=== PATIENT | male | born 1970 | race Caucasian/White ===

== ENCOUNTER 2017-02-07 04:47 | Emergency (ER) | payer SELFPAY ==
[2017-02-07 06:45] LABS: Bilirubin,Urine Negative (Negative); Ketones,Urine Trace mg/dL (Negative)
[2017-02-07 06:46] LABS: Blood,Urine Small (Negative); Leukocyte Esterase,Urine Negative (Negative); Nitrite,Urine Negative (Negative); Urobilinogen,Urine 0.2 mg/dL (<2.0)
[2017-02-07] MEDS ORDERED: MORPHINE IM ONE (08:39)
[2017-02-07] MEDS ORDERED: ZOFRAN ODT PO ONE (08:39)
[2017-02-07] MEDS ORDERED: NACL 0.9% 1000 ML 1,000 ML IV ONE ×2 (09:27→11:04)
--- NOTE | 2017-02-07 09:29 | Emergency Department Report ---
ED Back Pain/Injury HPI - General Chief Complaint: Back Pain/Injury Stated Complaint: BACK PAIN Time Seen by Provider: 02/07/17 08:38 Source: patient Limitations: Other - History of Present Illness Initial Comments: 46 yo male with PMHX of ETOH use and chronic back pain, presenting to ED complaining of worsening pain. Patient states he normally takes Flexeril for his back pain however over the last 2 days Flexeril has not been helping to improve his pain. Pain is located in the lower back. Pain does not radiate. Pain is worse with movement, improves with rest. Pertinent neck is cold saddle anesthesia, neurological deficits, urinary/bowel incontinence. Patient states although he has chronic back pain his pain sometimes does flareup and the only thing that helps is morphine. Patient also admits to drinking "one drink yesterday he denies history of ETOH abuse MD Complaint: back pain -: Gradual Similar Symptoms Previously: Yes Place: home Radiation: none Severity scale (0 -10): 5 Quality: burning Consistency: intermittent Improves With: none Worsens With: movement, sitting upright Context: turning/twisting Associated Symptoms: denies other symptoms. denies: confusion, weakness, chest pain, numbness, difficulty walking, fever/chills, constipation, headaches - Related Data Home Medications Medication Instructions Recorded Confirmed Last Taken Lisinopril/Hydrochlorothiazide 1 tab PO QDAY 02/07/17 02/07/17 Unknown [Zestoretic 10-12.5 mg] Allergies Allergy/AdvReac Type Severity Reaction Status Date / Time Penicillins Allergy Unknown Verified 02/07/17 05:13 ED Review of Systems ROS: Stated complaint: BACK PAIN Other details as noted in HPI Constitutional: denies: chills, fever Eyes: denies: eye pain, eye discharge, vision change ENT: denies: ear pain, throat pain Respiratory: denies: cough, shortness of breath, wheezing Cardiovascular: denies: chest pain, palpitations Endocrine: no symptoms reported Gastrointestinal: denies: abdominal pain, nausea, diarrhea Genitourinary: denies: urgency, dysuria Musculoskeletal: back pain. denies: joint swelling, arthralgia, myalgia Skin: denies: rash, lesions Neurological: denies: headache, weakness, paresthesias Psychiatric: denies: anxiety, depression Hematological/Lymphatic: denies: easy bleeding, easy bruising ED Past Medical Hx - Past Medical History Additional medical history: UNABLE TO OBTAIN - Surgical History Additional Surgical History: UNABLE TO OBTAIN - Social History Smoking Status: Current Every Day Smoker Substance Use Type: Alcohol - Medications Home Medications: Home Medications Medication Instructions Recorded Confirmed Last Taken Type Lisinopril/Hydrochlorothiazide 1 tab PO QDAY 02/07/17 02/07/17 Unknown History [Zestoretic 10-12.5 mg] ED Physical Exam - General Limitations: Other General appearance: alert, in no apparent distress - Head Head exam: Present: atraumatic, normocephalic - Eye Eye exam: Present: normal appearance - ENT ENT exam: Present: mucous membranes moist - Neck Neck exam: Present: normal inspection - Respiratory Respiratory exam: Present: normal lung sounds bilaterally. Absent: respiratory distress - Cardiovascular Cardiovascular Exam: Present: regular rate, normal rhythm. Absent: systolic murmur, diastolic murmur, rubs, gallop - GI/Abdominal GI/Abdominal exam: Present: soft, normal bowel sounds - Rectal Rectal exam: Present: deferred - Extremities Exam Extremities exam: Present: normal inspection - Back Exam Back exam: Present: normal inspection, full ROM, muscle spasm (paraspinal spasm ). Absent: tenderness, CVA tenderness (R), CVA tenderness (L), paraspinal tenderness, vertebral tenderness - Neurological Exam Neurological exam: Present: alert, oriented X3 - Psychiatric Psychiatric exam: Present: normal affect, normal mood - Skin Skin exam: Present: warm, dry, intact, normal color. Absent: rash ED Course Vital Signs 02/07/17 02/07/17 02/07/17 05:13 07:58 09:47 Temperature 98.2 F 98.1 F Pulse Rate 125 H 120 H 114 H Respiratory 16 16 Rate Blood Pressure 149/110 165/112 Blood Pressure 149/79 [Left] O2 Sat by Pulse 95 99 Oximetry 02/07/17 11:03 Temperature Pulse Rate 104 H Respiratory 16 Rate Blood Pressure Blood Pressure 132/88 [Left] O2 Sat by Pulse 99 Oximetry - Reevaluation(s) Reevaluation #1: 02/07/17 09:32 Patient ambulating to the restroom with steady gait, unassisted. Reevaluation #2: 02/07/17 10:46 pt resting comfortably ED Medical Decision Making - EKG Data -: EKG Interpreted by Me EKG shows normal: sinus rhythm (105), axis (upright ), intervals, QRS complexes (96), ST-T waves (no STEMI ) - EKG Data When compared to previous EKG there are: previous EKG unavailable Interpretation: nonspecific ST-T wave charm[place] - Medical Decision Making 46-year-old male with past medical history of chronic back pain presenting to the ED complaining of back pain, EtOH intoxication. Concerning back pain, ia have low suspicion for cord compression as patient has no: saddle anesthesia, neurological deficits, or urinary/bowel incontinence. Patient has ambulated throughout the ED multiple times with steady gait and decreased pain after being given medications in the ER. Low suspicion for renal colic as patient's urine doesn't have red blood cells. Concerning EtOH, patient has been in the ED for 7 hours and is now clinically sober. I have given him recommendations for outpatient drug and alcohol rehabilitation and he agrees to reviewed the material. Patient denies colon SI/HI/AH/VH. Critical Care Time: No Critical care attestation.: If time is entered above; I have spent that time in minutes in the direct care of this critically ill patient, excluding procedure time. ED Disposition Clinical Impression: Back pain, Alcohol intoxication Disposition: DC-01 TO HOME OR SELFCARE Is pt being admited?: No Does the pt Need Aspirin: No Condition: Stable Instructions: Low Back Strain (ED), Arthralgia (ED), Chronic Back Pain (ED) Referrals: PRIMARY MD KWESI [Primary Care Provider] - 3-5 Days PANFILO JAEGER MD [Staff Physician] - 3-5 Days
[2017-02-07] MEDS ORDERED: ZESTRIL ONE (09:37)
[2017-02-07] MEDS ORDERED: HCTZ ONE (09:38)
[2017-02-07] MEDS ORDERED: HCTZ PO ONE (09:45)
[2017-02-07] MEDS ORDERED: ZESTRIL PO ONE (09:46)
[2017-02-07 12:41] VITALS: BP 128/77
== END 2017-02-07 12:45 | disposition home or self-care (01) ==
LOC: ED 04:47
DX: M54.5 Low back pain (principal); F10.129 Alcohol abuse with intoxication, unspecified; G89.29 Other chronic pain; Z88.0 Allergy status to penicillin
CPT/HCPCS: 81001; 93005; 93010; 96360; 96361; 96372; 99284; J2270; J7030; Q0162